=== PATIENT | female | born 1980 | race Caucasian/White ===

== ENCOUNTER → 2017-01-24 | Outpatient (CLI) | payer BC ==
--- NOTE | 2017-01-24 10:01 | Diagnostic Imaging Report ---
EXAMINATION: Ultrasound pelvis DATE: January 24, 2017. INDICATION: 37-year-old female, pelvic pain, heavy menses. COMPARISON: None. TECHNIQUE: A sonogram of the pelvis was performed utilizing transabdominal approach assessing perkins-scale appearance, spectral Doppler analysis, and color Doppler flow. FINDINGS: There are limitations of the exam relating to lack of endovaginal imaging. The uterus measures 9.9 x 4.8 x 6.4 cm. There is a heterogeneously echoic mass in the uterus which measures 2.4 x 1.4 x 1.4 cm in size which may relate to an intrauterine leiomyoma. The endometrium measures 1.3 cm in diameter. The right ovary measures 3.8 cm x 1.9 cm x 1.6 cm. The left ovary measures 4.3 cm x 3.2 cm x 3.7 cm. There are anechoic left ovarian lesions without internal blood flow compatible with simple appearing cyst measuring up to maximally 2.5 x 2.4 cm in size. There is blood flow to both ovaries. No free pelvic fluid is demonstrated. IMPRESSION: 1. Probable intrauterine leiomyoma measuring 2.4 x 1.4 x 1.4 cm in size. 2. Endometrial thickness of 13 mm. Recommend correlation with timing of menstrual cycle. 3. Simple appearing left ovarian cyst measuring up to maximally 2.5 x 2.4 cm in size. 4. No evidence of ovarian torsion. 5. No free pelvic fluid. Dictated by: Dictated on workstation # [id number]
== END ==
LOC: RAD 08:47
PROVIDERS: ATTEND Family Medicine
DX: R10.2 Pelvic and perineal pain (principal); N92.0 Excessive and frequent menstruation with regular cycle
CPT/HCPCS: 76856

== ENCOUNTER → 2017-02-21 | Outpatient (CLI) | payer BC ==
[~2017-02-21] MED LIST: CTLP20T PO; FERR240T9 PO
[2017-02-21 11:42] LABS: BASOPHILS % (AUTO) 0 % (0-2); EOSINOPHILS % (AUTO) 1 % (0-4); LYMPHOCYTES # (AUTO) 1.8 X10^3; MEAN CORPUSCULAR HEMOGLOBIN 28.4 PG (26.0-34.0); MEAN CORPUSCULAR HGB CONC 32.8 g/dL (31.0-37.0); MEAN CORPUSCULAR VOLUME 87 FL (80-100); MEAN PLATELET VOLUME 10.1 FL (6.0-9.5); MONOCYTES # (AUTO) 0.5 X10^3; MONOCYTES % (AUTO) 7 % (3-11); NEUTROPHILS # (AUTO) 4.4 X10^3; NEUTROPHILS % (AUTO) 65 % (51-67); PLATELET COUNT 291 10^3uL (150-450)
[2017-02-21 11:54] LABS: ANION GAP 12.8 MEQ/L (3-15); TOTAL PROTEIN 7.5 g/dL (6.4-8.5)
== END ==
LOC: LAB 11:32
PROVIDERS: ATTEND Obstetrics & Gynecology
DX: N92.0 Excessive and frequent menstruation with regular cycle (principal); D25.1 Intramural leiomyoma of uterus; D50.0 Iron deficiency anemia secondary to blood loss (chronic)
CPT/HCPCS: 36415; 80053; 81025; 85025